=== PATIENT | male | born 1990 | race Caucasian/White ===

== ENCOUNTER 2019-10-25 07:27 | Emergency (ER) | payer SELFPAY ==
[2019-10-25 07:35] VITALS: BP 158/102; PULSE 127; RESP 18; TEMP 37.8; O2SAT 95; BMI 28.1
--- NOTE | 2019-10-25 07:47 | XR_ITS ---
WS: [id number] XR chest 1V portable [id number] REASON FOR EXAM: productive cough FINDINGS: The heart and mediastinal interfaces normal. The lung betts are adequately aerated. There is no pneumonia, pleural effusion, pulmonary edema, mas s effect or pneumothorax. There is scattered granulomas well calcified throughout both lung betts. XR/XR chest 1V portable [id number] IMPRESSION: No active cardiopulmonary changes. Well calcified granulomas both lung betts.
--- NOTE | 2019-10-25 07:47 | W.ED.GENADLT ---
HPI - General Adult General: Chief complaint: Fever Stated complaint: Multipule complaints Time Seen by Provider: 10/25/19 07:38 History of Present Illness: HPI narrative: Patient complains of a productive cough for the last 3 days. Has not had a fever until today. Has had occupational exposure to chemical fumes while working on some stuff called [employer] the last 10 days. Has not had any influenza exposure decreased appetite MD complaint: Flu Onset (ago): day(s) (3) Severity: moderate Quality: aching Associated symptoms: Reports cough, decreased appetite and fevers/chills; Deny chest pain, dyspnea, headache(s), nausea, rash or vomiting Review of Systems Const: Reports: fever, chills and body aches Eyes: Denies: change in vision or blurry vision ENMT: Denies: throat pain or nasal congestion Card: Denies: chest pain or shortness of breath on exertion Resp: Reports: productive cough; Denies: shortness of breath or non-productive cough GI: Denies: abdominal pain, nausea or vomiting : Denies: difficulty urinating Musc: Denies: extremity pain Skin/Breast: Denies: rash Neuro: Denies: headache Psych: Denies: anxiety or depression Vladimir/Lymph: Denies: easy bruising PFSH ED PFSH: Social History Smoking and tobacco status: former smoker Physical Exam Const: COMMON NORMALS: no apparent distress, average body habitus and oriented x3 HENMT: COMMON NORMALS: normocephalic HEAD & SCALP: normal to inspection and normocephalic FACE & SINUS: normal facial exam Eye: COMMON NORMALS: conjunctivae normal GENERAL EYE: normal appearance of both eyes CONJUNCTIVA: Yes conjunctivae normal Neck/C-Spine: COMMON NORMALS: no JVD Chest: COMMONS NORMALS: inspection of chest normal Resp: COMMON NORMALS: normal respiratory effort AUSCULTATION: rhonchi left upper and left lower Cardio: COMMON NORMALS: no JVD, regular rate and regular rhythm RATE: regular rate RHYTHM: regular rhythm GI: COMMON NORMALS: normal to inspection, nondistended, normoactive bowel sounds Extremity: COMMON NORMALS: normal to inspection and full ROM Neuro: COMMON NORMALS: oriented x3 Course Vital Signs: Vital signs: Vital Signs Temperature 100.0 F H 10/25/19 07:35 Pulse Rate 127 H 10/25/19 07:35 Respiratory Rate 18 10/25/19 07:35 Blood Pressure 158/102 10/25/19 07:35 Pulse Oximetry 95 10/25/19 07:35 Coding Level of Care Code ED Corporate Accounting Manager for Alexey Adler
[2019-10-25 07:51] VITALS: BP 158/102; PULSE 116; RESP 16; O2SAT 96
[2019-10-25 08:04] LABS: Basophils % 0.5 %; Hematocrit 49.3 % (42.0-52.0); Hemoglobin 16.1 g/dL (11.7-16.6); Lymphocytes # 1.1 10^3/uL (0.8-4.8); Mean Corpuscular HGB Conc 32.7 g/dL (30.0-36.0); Mean Corpuscular Hemoglobin 29.3 pg (28.0-34.0); Mean Corpuscular Volume 89.6 fL (80-94); Mean Platelet Volume 9.9 fL (7.4-10.4); Monocytes # 0.6 10^3/uL (0.2-0.9); Monocytes % 7.7 %; Neutrophils # 6.4 10^3/uL (1.8-7.7); Neutrophils % 78.6 %; Nucleated Red Blood Cells % 0 %; Platelet Count 157 10^3/cmm (130-400); Red Cell Distribution Width 13.2 % (12.1-15.1); White Blood Count 8.2 10^3/uL (4.0-10.0)
[2019-10-25] MEDS: sodium chloride 0.9% 1,000 ML 999 ML IV (08:04)
[2019-10-25 08:21] LABS: Alanine Aminotransferase 14 U/L (0-41); Albumin Level 4.2 g/dL (3.5-5.2); Alkaline Phosphatase 96 IU/L (40-130); Anion Gap 15.6 (5-19); Aspartate Amino Transferase 23 U/L (0-40); Blood Urea Nitrogen 11 mg/dL (6-20); Calcium 9.4 mg/dL (8.5-10.5); Carbon Dioxide 24 mmol/L (22-29); Chloride 102 mmol/L (98-107); Globulin 3.4 g/dL (1.3-4.6); Glomerular Filtration Rate 78.6 mL/min (90-130); Glucose 119 mg/dL (65-115); Potassium 3.6 mmol/L (3.5-5.1); Sodium 138 mmol/L (136-145); Total Bilirubin 0.6 mg/dL (0.15-1.2); Total Protein 7.6 g/dL (6.6-8.7)
[2019-10-25 08:23] VITALS: BP 158/102; PULSE 111; RESP 18; O2SAT 98
[2019-10-25 08:25] LABS: Influenza A by IFA Negative (Negative); Influenza B by IFA Positive (Negative)
[2019-10-25 08:26] VITALS: PULSE 113; RESP 18; O2SAT 98
[2019-10-25 08:41] VITALS: BP 126/75; PULSE 108; RESP 17; O2SAT 97
== END 2019-10-25 08:41 | disposition home or self-care (01) ==
PROVIDERS: Emergency Provider Nurse Practitioner Family
DX: R50.9 Fever, unspecified (principal); R05 Cough; Z87.891 Personal history of nicotine dependence
CPT/HCPCS: 12345; 36415; 71045; 80053; 83605; 85025; 87040; 87804; 94640; 96360; 99283; A9270; J7030; J7611

== ENCOUNTER 2020-07-28 19:23 | Emergency (ER) | payer MEDICAID, SELFPAY ==
[2020-07-28 19:27] VITALS: BP 147/94; PULSE 111; RESP 16; TEMP 36.6; O2SAT 99; BMI 32.3
--- NOTE | 2020-07-28 19:29 | ECG_ITS ---
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 Measurements Intervals [place] Rate: 93 P: 76 [place]: 155 QRS: 74 QRSD: 115 T: 26 QT: 350 QTc: 435 Interpretive Statements SINUS RHYTHM INDETERMINATE AXIS INCOMPLETE RIGHT BUNDLE BRANCH BLOCK [90+ ms QRS DURATION, TERMINAL R IN V1/V2, 40+ ms S IN I/aVL/V4/V5/V6] No previous ECG available for comparison Electronically Signed On 07-29-2020 15:17:45 POST ADOPTION COORDINATOR by Alysa Fish M.D. [email or web address]
[2020-07-28 20:30] VITALS: BP 135/84; BP 136/93; BP 146/78; PULSE 101; PULSE 111; PULSE 116
--- NOTE | 2020-07-28 20:40 | W.ED.DIZZY ---
HPI - Dizziness General: Chief Complaint: Dizziness Stated Complaint: DIZZY FOLLOWING WORKOUT Time Seen by Provider: 07/28/20 20:40 History of Present Illness: HPI Narrative: Patient is a 30-year-old male comes to the ED with near syncopal episode. Episode occurred just prior to arrival and occurred following a workout. Patient says he had a good workout and was hot and sweaty and then started feeling some dizziness his hearing started fading and started getting tunnel vision. He also says he felt weak. He then sat down and symptoms started improving. Denies any loss of consciousness, chest pain or shortness of breath. Patient did say well last couple weeks have been stressful due to his being hospitalized. He also says for the last 2 days he has had to do a lot of driving all over [place] and does not eat much at all or drink much water. He says he usually drinks a lot of water throughout the day and these past 2 days he has not had much water at all. Patient did say he took a post workout drink mix today right after the workout that was the first time he has ever taken it. Here in the ED he feels a lot better but just a little tired. Associated symptoms: Denies chest pain, chills, headache(s), nausea, nasal congestion, palpitations or vomiting Associated neuro symptoms: Deny numbness in extremities Review of Systems Const: Denies: fever(s), chills or fatigue Eyes: Denies: change in vision or eye discomfort ENMT: Denies: throat pain, odynophagia, nasal discharge or nasal congestion Card: Reports: lightheadedness (Resolved) and pre-syncope; Denies: chest pain, palpitations, edema, swelling of feet/ankles, dyspnea on exertion or orthopnea Resp: Denies: dyspnea, productive cough or non-productive cough GI: Denies: abdominal pain, nausea, vomiting, diarrhea, constipation or hematochezia : Denies: flank pain, difficulty urinating, dysuria or hematuria Musc: Denies: neck pain, back pain or extremity swelling Skin/Breast: Denies: rash or new lesions Neuro: Denies: headache(s), numbness in extremities or weakness in extremities PFS ED PFSH: Social History Smoking and tobacco status: former smoker Physical Exam Const: COMMON NORMALS: no acute distress, patient oriented x3, healthy appearing and alert GENERAL APPEARANCE: cooperative and comfortable HENMT: COMMON NORMALS: normocephalic HEAD & SCALP: normocephalic MOUTH: Normal oral and palatal mucosa present THROAT: posterior oropharynx normal and uvula midline Eye: COMMON NORMALS: Equal, round and reactive pupils present PUPIL: Yes Equal, round and reactive pupils present Neck/C-Spine: COMMON NORMALS: supple GENERAL: Yes normal visual inspection Resp: COMMON NORMALS: normal respiratory effort, No retractions, No use of accessory muscles and clear to auscultation bilaterally AUSCULTATION: clear to auscultation bilaterally Cardio: COMMON NORMALS: regular rate, regular rhythm, S1 normal heart sound present, S2 normal heart sound present, No gallops present (Cardio), No clicks present (Cardio), No murmurs present (Cardio) and Peripheral pulses 2+ throughout RATE: regular rate RHYTHM: regular rhythm HEART SOUNDS: S1 normal heart sound present and S2 normal heart sound present PERIPHERAL PULSES: Peripheral pulses 2+ throughout GI: COMMON NORMALS: Normal to inspection, nondistended, normoactive bowel sounds present, Soft to palpation, non-tender and no masses PALPATION: Yes Soft to palpation : COMMON NORMALS: Yes no CVA tenderness BLADDER/KIDNEY EXAM: Yes no CVA tenderness Back/Pelvis: COMMON NORMALS: no CVA tenderness Extremity: COMMON NORMALS: normal to inspection Neuro: COMMON NORMALS: patient oriented x3 and moves all extremities SENSORIUM/ORIENTATION: Yes alert Skin: GENERAL SKIN EXAM: dry skin Course Reevaluation(s): Reevaluation #1: Patient was given 1 L of IV fluids while here in the ED and he says he is feeling a lot better now after fluids. Vital Signs: Vital signs: Vital Signs Temperature 97.9 F 07/28/20 19:27 Pulse Rate 101 H 07/28/20 20:30 Respiratory Rate 16 07/28/20 19:27 Blood Pressure 136/93 07/28/20 20:30 Pulse Oximetry 99 07/28/20 19:27 MDM - Dizziness MDM Narrative: Medical decision making narrative: Patient is a 30-year-old male who comes to the ED with near syncopal episode. Episode occurred just prior to arrival. Patient had just finished a hard workout when he started developing lightheadedness, dizzy, tunnel vision and his hearing started to fade. He says he immediately sat down and denies any loss of consciousness and after sitting for a while symptoms improved. Denies any chest pain symptoms. Patient says that for the past 2 days he is hardly ate anything or drink any fluids. He says he has been really busy and has had to drive to [place] in [place] the past 2 days. He says he usually drinks a lot of water but he has not the past 2 days. He is drink a couple cups of coffee in the mornings these past 2 days as well. Physical exam of patient is normal and he appears in no acute distress or pain. Cardiac and lung exam normal. Patient does have some dry oral mucous membranes. Creatinine level is 1.3. EKG showed normal sinus rhythm with no ST segment elevation or depression seen. Troponin negative. Patient was given 1 L of IV fluids and he felt a lot better. Patient diagnosed with presyncope dehydration and elevated creatinine. He was told to follow-up with his PCP in 5 to 7 days to get creatinine level checked. Told to drink plenty of fluids and stay hydrated and to rest for the next couple days and then not do any workouts. Return to the ED precautions given. Patient understood and agreed with plan. Lab Data: Attestation: I reviewed the patient's lab results. Labs: Lab Results 07/28/20 07/28/20 07/28/20 Range/Units 21:02 21:02 21:02 WBC 14.5 H (4.0-10.0) 10^3/ uL RBC 5.42 H (4.1-5.3) 10^6/u L Hgb 16.2 (11.7-16.6) g/dL Hct 47.2 (42.0-52.0) % MCV 87.1 (80-94) fL MCH 29.9 (28.0-34.0) pg MCHC 34.3 (30.0-36.0) g/dL RDW 11.9 L (12.1-15.1) % Plt Count 236 (130-400) 10^3/c mm MPV 9.6 (7.4-10.4) fL Neut % (Auto) 78.7 % Lymph % (Auto) 13.8 % [place] % (Auto) 6.2 % Eos % (Auto) 0.3 % Baso % (Auto) 0.6 % Neut # (Auto) 11.37 H (1.8-7.7) 10^3/u L Lymph # (Auto) 2.0 (0.8-4.8) 10^3/u L [place] # (Auto) 0.9 (0.2-0.9) 10^3/u L Eos # (Auto) 0.1 (0.0-0.8) 10^3/u L Baso # (Auto) 0.1 (0.0-0.1) 10^3/u L Nucleated RBC % (a uto) 0 % Nucleated RBCs # 0.0 /100WBC Sodium 136 (136-145) mmol/L Potassium 3.9 (3.5-5.1) mmol/L Chloride 101 (98-107) mmol/L Carbon Dioxide 24 (22-29) mmol/L Anion Gap 14.9 (5-19) BUN 15 (6-20) mg/dL Creatinine 1.3 H (0.7-1.2) mg/dL GFR Calculation 64.4 L (90-130) mL/min Glucose 107 (65-115) mg/dL Calculated Osmolal ity 283 L (285-295) mOsm/k g Calcium 9.4 (8.5-10.5) mg/dL Magnesium 2.5 H (1.7-2.3) mg/dL Total Bilirubin 0.4 (0.15-1.2) mg/dL AST 17 (0-40) U/L ALT 16 (0-41) U/L Alkaline Phosphata se 95 (40-130) IU/L Troponin T Gen 5 n g/L 13 (0-15) ng/L Total Protein 7.0 (6.6-8.7) g/dL Albumin 4.4 (3.5-5.2) g/dL Globulin 2.6 (1.3-4.6) g/dL Urine Color (Yellow) Urine Appearance (CLEAR) Urine pH (5-7) Ur Specific Gravit y (1.005-1.030) Urine Protein (Negative) Urine Glucose (UA) (Normal) Urine Ketones (Negative) Urine Blood (Negative) Urine Nitrate (Negative) Urine Bilirubin (Negative) Urine Urobilinogen (Negative) mg/dL Ur Leukocyte Mercedez ase (Negative) Urine RBC (0-2) /hpf Urine WBC (0-5) /hpf Ur Squamous Epith Cells (0-5) /hpf Amorphous Sediment Urine Bacteria (NONE) /hpf 07/28/20 Range/Units 21:09 WBC (4.0-10.0) 10^3/ uL RBC (4.1-5.3) 10^6/u L Hgb (11.7-16.6) g/dL Hct (42.0-52.0) % MCV (80-94) fL MCH (28.0-34.0) pg MCHC (30.0-36.0) g/dL RDW (12.1-15.1) % Plt Count (130-400) 10^3/c mm MPV (7.4-10.4) fL Neut % (Auto) % Lymph % (Auto) % [place] % (Auto) % Eos % (Auto) % Baso % (Auto) % Neut # (Auto) (1.8-7.7) 10^3/u L Lymph # (Auto) (0.8-4.8) 10^3/u L [place] # (Auto) (0.2-0.9) 10^3/u L Eos # (Auto) (0.0-0.8) 10^3/u L Baso # (Auto) (0.0-0.1) 10^3/u L Nucleated RBC % (a uto) % Nucleated RBCs # /100WBC Sodium (136-145) mmol/L Potassium (3.5-5.1) mmol/L Chloride (98-107) mmol/L Carbon Dioxide (22-29) mmol/L Anion Gap (5-19) BUN (6-20) mg/dL Creatinine (0.7-1.2) mg/dL GFR Calculation (90-130) mL/min Glucose (65-115) mg/dL Calculated Osmolal ity (285-295) mOsm/k g Calcium (8.5-10.5) mg/dL Magnesium (1.7-2.3) mg/dL Total Bilirubin (0.15-1.2) mg/dL AST (0-40) U/L ALT (0-41) U/L Alkaline Phosphata se (40-130) IU/L Troponin T Gen 5 n g/L (0-15) ng/L Total Protein (6.6-8.7) g/dL Albumin (3.5-5.2) g/dL Globulin (1.3-4.6) g/dL Urine Color Yellow (Yellow) Urine Appearance Clear (CLEAR) Urine pH 5.0 (5-7) Ur Specific Gravit y 1.025 (1.005-1.030) Urine Protein Neg (Negative) Urine Glucose (UA) Norm (Normal) Urine Ketones Negative (Negative) Urine Blood Trace H (Negative) Urine Nitrate Negative (Negative) Urine Bilirubin Neg (Negative) Urine Urobilinogen Norm (Negative) mg/dL Ur Leukocyte Mercedez ase Negative (Negative) Urine RBC 0-4 H (0-2) /hpf Urine WBC None (0-5) /hpf Ur Squamous Epith Cells None (0-5) /hpf Amorphous Sediment Not Reportable Urine Bacteria Trace (NONE) /hpf EKG Data^: EKG 1: Attestation: I personally reviewed and interpreted this EKG as follows: EKG interpretation date: 07/28/20 Interpretation: Sinus rhythm, 93 bpm, no ST segment elevation or depression seen. Discharge Plan Discharge Patient Disposition: Home Clinical Impression: Pre-syncope, Dehydration, Creatinine elevation Condition: Stable Prescriptions: No Action No Known Home Medications RF: 0 Discharge Orders: Discharge ED (Routine); Ordered 07/28/20 Ordered By: Manpreet Encinas Discharge Diet: Regular Discharge Activity: Limit activity as instructed Patient Instructions: Dehydration (ED), Near Syncope (ED) Activity Restrictions/Additional Instructions: Follow-up with medical provider as directed in 5 to 7 days for reevaluation and have creatinine levels checked. Rest for the next 3 to 5 days and make sure you drink plenty of fluids and stay hydrated. Ease back into working out after 3 to 5 days of rest. Limit caffeine intake as well. Return to the ER or your medical provider if condition worsens. Please read and understand discharge instructions. If any questions, please ask. Coding Level of Care Code ED Power Barker for Chg Fwd Exam Comprehensive
[2020-07-28 21:11] LABS: Basophils # 0.1 10^3/uL (0.0-0.1); Basophils % 0.6 %; Eosinophils # 0.1 10^3/uL (0.0-0.8); Eosinophils % 0.3 %; Hematocrit 47.2 % (42.0-52.0); Hemoglobin 16.2 g/dL (11.7-16.6); Lymphocytes % 13.8 %; Mean Corpuscular HGB Conc 34.3 g/dL (30.0-36.0); Mean Corpuscular Hemoglobin 29.9 pg (28.0-34.0); Mean Corpuscular Volume 87.1 fL (80-94); Mean Platelet Volume 9.6 fL (7.4-10.4); Monocytes # 0.9 10^3/uL (0.2-0.9); Monocytes % 6.2 %; Neutrophils # 11.37 10^3/uL (1.8-7.7); Neutrophils % 78.7 %; Nucleated Red Blood Cells % 0 %; Platelet Count 236 10^3/cmm (130-400); Red Blood Count 5.42 10^6/uL (4.1-5.3); Red Cell Distribution Width 11.9 % (12.1-15.1); White Blood Count 14.5 10^3/uL (4.0-10.0)
[2020-07-28] MEDS: sodium chloride 0.9% 1,000 ML 999 ML IV (21:29)
[2020-07-28 21:34] LABS: Alanine Aminotransferase 16 U/L (0-41); Albumin Level 4.4 g/dL (3.5-5.2); Alkaline Phosphatase 95 IU/L (40-130); Anion Gap 14.9 (5-19); Aspartate Amino Transferase 17 U/L (0-40); Blood Urea Nitrogen 15 mg/dL (6-20); Calcium 9.4 mg/dL (8.5-10.5); Carbon Dioxide 24 mmol/L (22-29); Chloride 101 mmol/L (98-107); Globulin 2.6 g/dL (1.3-4.6); Glomerular Filtration Rate 64.4 mL/min (90-130); Glucose 107 mg/dL (65-115); Magnesium 2.5 mg/dL (1.7-2.3); Osmolality Calculated 283 mOsm/kg (285-295); Potassium 3.9 mmol/L (3.5-5.1); Sodium 136 mmol/L (136-145); Total Bilirubin 0.4 mg/dL (0.15-1.2); Troponin T (5th) Once 13 ng/L (0-15)
[2020-07-28 21:50] LABS: Urine Appearance Clear (CLEAR); Urine Color Yellow (Yellow)
[2020-07-28 21:51] LABS: Add Urine Microscopic? YES; Bilirubin Urine Neg (Negative); Blood Urine Trace (Negative); Glucose Urine UA Norm (Normal); Ketones Urine Negative (Negative); Leukocyte Esterase Urine Negative (Negative); Nitrate Urine Negative (Negative); Protein Urine Neg (Negative); RBC Urine 0-4 /hpf (0-2); Specific Gravity, Urine 1.025 (1.005-1.030); Urobilinogen Urine Norm (Negative)
[2020-07-28 21:52] LABS: Add Urine Culture? No; Bacteria Urine TRACE /hpf
== END 2020-07-28 22:47 | disposition home or self-care (01) ==
PROVIDERS: Emergency Medicine; Emergency Provider Physician Assistant
DX: R55 Syncope and collapse (principal); E86.0 Dehydration; R79.89 Other specified abnormal findings of blood chemistry; Z87.891 Personal history of nicotine dependence
CPT/HCPCS: 12345; 36415; 80053; 81001; 83735; 84484; 85025; 93005; 96360; 99283; J7030